=== PATIENT | female | born 1985 | race Caucasian/White ===

== ENCOUNTER 2018-01-10 12:25 | Emergency (ER) | payer BC ==
--- NOTE | 2018-01-10 14:34 | RAD ---
INDICATION: Evaluate for glass foreign body COMPARISON: None TECHNIQUE: AP, lateral, and oblique views were obtained. FINDINGS: There is no acute bony change. There is moderate first MTP joint osteoarthritis. There is no radiopaque foreign body. IMPRESSION: FIRST MTP JOINT OSTEOARTHRITIS. NO RADIOPAQUE FOREIGN BODY.
--- NOTE | 2018-01-10 14:50 | ED ---
Lower Extremity - HPI Summary HPI Summary: 32-year-old female presents with presents with potential foreign body. She states that it was ago she states on a piece of glass. She states that 3 days ago she removed a piece of glass and developed some pus behind it. She denies any fevers. She denies any redness. She wonders is still foreign body. She states is painful when she ambulates. no history of MRSA. She is not diabetic. - History of Current Complaint Chief Complaint: UCWounds Stated Complaint: FOOT COMPLAINT Time Seen by Provider: 01/10/18 14:08 Hx Last Menstrual Period: breast feeding Pain Intensity: 6 - Allergies/Home Medications Allergies/Adverse Reactions: Allergies Allergy/AdvReac Type Severity Reaction Status Date / Time No Known Allergies Allergy Verified 01/10/18 14:01 PMH/Surg Hx/FS Hx/Imm Hx Endocrine/Hematology History: Denies: Hx Diabetes, Hx Thyroid Disease Cardiovascular History: Reports: Hx Hypertension - preclamp Respiratory History: Denies: Hx Asthma, Hx Chronic Obstructive Pulmonary Disease (COPD) GI History: Denies: Hx Ulcer - Surgical History Surgery Procedure, Year, and Place: denies Infectious Disease History: Yes Infectious Disease History: Denies: Hx Hepatitis, Hx Human Immunodeficiency Virus (HIV), Traveled Outside the [place] in Last 30 Days - Family History Known Family History: Negative: Diabetes - Social History Alcohol Use: Occasionally Substance Use Type: Reports: None Smoking Status (MU): Never Smoked Tobacco Review of Systems Negative: Fever Negative: Chest Pain Negative: Shortness Of Breath Positive: Myalgia - right foot pain All Other Systems Reviewed And Are Negative: Yes Physical Exam Triage Information Reviewed: Yes Vital Signs On Initial Exam: Initial Vitals Temp Pulse Resp BP Pulse Ox 99.5 F 63 18 122/74 100 01/10/18 13:57 01/10/18 13:57 01/10/18 13:57 01/10/18 13:57 01/10/18 13:57 Vital Signs Reviewed: Yes Appearance: Positive: Well-Appearing Skin: Positive: Warm, Dry Head/Face: Positive: Normal Head/Face Inspection Eyes: Positive: Normal, Conjunctiva Clear ENT: Positive: Pharynx normal Respiratory/Lung Sounds: Positive: Clear to Auscultation, Breath Sounds Present Cardiovascular: Positive: Normal, RRR Musculoskeletal: Positive: Strength/ROM Intact - right pain, Other - area of tenderness on left heel, no erythema, scab on left heel, good pulses, capillary refill<2secs. Negative: Edema Left Neurological: Positive: Normal Psychiatric: Positive: Normal Diagnostics - Vital Signs Vital Signs Temp Pulse Resp BP Pulse Ox 01/10/18 13:57 99.5 F 63 18 122/74 100 - Laboratory Lab Statement: Any lab studies that have been ordered have been reviewed, and results considered in the medical decision making process. Lower Extremity Course/Dx - Course Course Of Treatment: 32-year-old female presents with presents with potential foreign body. She states that it was ago she states on a piece of glass. She states that 3 days ago she removed a piece of glass and developed some pus behind it. She denies any fevers. She denies any redness. She wonders is still foreign body. She states is painful when she ambulates. no history of MRSA. She is not diabetic. on exam no erythema present. has scab on area. no foreign body felt. xray shows no foreign body. will place on keflex and have do warm soaks. patient understand and agrees with plan. - Diagnoses Differential Diagnosis/HQI/PQRI: Positive: Cellulitis, Foreign Body, Infection Provider Diagnoses: Left foot pain Discharge - Sign-Out/Discharge Documenting (check all that apply): Discharge/Admit/Transfer - Discharge Plan Condition: Good Disposition: HOME Prescriptions: Cephalexin CAP* [Keflex CAP*] 500 mg PO BID #14 cap Fluconazole 150 MG (NF) [Diflucan 150 mg (NF)] 150 mg PO ONCE #1 tab Patient Education Materials: Soft Tissue Foreign Body (ED) Referrals: Dafne Vicente MD [Primary Care Provider] - Additional Instructions: Take keflex twice a day for 7 days do warm soaks area twice a day Follow up with primary if no improvement in 5 days Return to ED if develop any new or worsening symptoms - Billing Disposition and Condition Condition: GOOD Disposition: Home
== END 2018-01-10 15:21 | disposition home or self-care (01) ==
LOC: UCEAST 12:25
DX: M79.672 Pain in left foot (principal); I10 Essential (primary) hypertension
CPT/HCPCS: 99202; G0463

== ENCOUNTER 2020-03-09 13:58 | Inpatient (IN) ==
[2020-03-09] MEDS ORDERED: Lactated Ringers 1000 ml BAG 1,000 ML IV ONE ×2 (14:30→18:17)
[2020-03-09] MEDS ORDERED: Lactated Ringers 1000 ml BAG 1,000 ML IV SCH ×3 (15:00→20:00)
[2020-03-09] MEDS ORDERED: Oxytocin in LR 20 UNITS/1,000 ML BAG IVPB SCH ×2 (15:00→20:00)
[2020-03-09 15:11] LABS: ABS Lymphocytes 1.8 10^3/ul (1.0-4.8); ABS Monocytes 0.5 10^3/ul (0-0.8); ABS Neutrophils 6.3 10^3/ul (1.5-7.7); Eosinophil % 0.3 %; Hematocrit 37 % (35-47); Lymphocyte % 20.9 %; Mean Corpuscular HGB Conc 35 g/dL (31-36); Mean Corpuscular Hemoglobin 32 pg (27-31); Mean Corpuscular Volume 90 fL (80-97); Mean Platelet Volume 9.1 fL (7.4-10.4); Platelet Count 257 10^3/uL (150-450); Red Blood Count 4.11 10^6 /uL (3.70-4.87); Red Cell Distribution Width 14 % (10-15); White Blood Count 8.7 10^3/uL (3.5-10.8)
[2020-03-09 15:49] LABS: Albumin 3.6 g/dL (3.2-5.2); Albumin/Globulin Ratio 1.4 (1-3); BUN/Creatinine Ratio 9.4 (8-20); Calcium 9.1 mg/dL (8.6-10.3); EGFR African American 128.5 (>60); EGFR Non-African American 106.2 (>60); Globulin 2.6 g/dL (2-4); Potassium 3.7 mmol/L (3.5-5.0); Total Bilirubin 0.3 mg/dL (0.2-1.0); Total Protein 6.2 g/dL (6.4-8.9); Uric Acid 3.9 mg/dL (2.3-6.6)
[2020-03-09 16:00] LABS: Urine Benzodiazepine Screen None Detected (None Detect); Urine Cannabinoids Screen None Detected (None Detect); Urine Opiates Screen None Detected (None Detect)
[2020-03-09] MEDS ORDERED: OBEPIDURAL 250 ML EPIDURAL ONE (17:37)
[2020-03-09] MEDS ORDERED: EPHEDrine (Pressors) 50 MG/ML VIAL IV PUSH PRN ×2 (18:17)
[2020-03-09] MEDS ORDERED: Sodium Citrate/Citric Acid LIQ 15 ML UDC PO PRN (18:17)
[2020-03-09] MEDS ORDERED: Phenylephrine 40 mcg/mL 10mL (400mcg) SYRINGE IV PUSH PRN ×2 (18:17)
[2020-03-09] MEDS ORDERED: OBEPIDURAL 250 ML EPIDURAL SCH (19:00)
[2020-03-09] MEDS ORDERED: Witch Hazel PAD JAR TOPICAL PRN (19:52)
[2020-03-09] MEDS ORDERED: Glycerin ADULT 2.4 gm SUPP PR PRN (19:52)
[2020-03-09] MEDS ORDERED: Dibucaine 1% OINT 28.35 GM TUBE PR PRN (19:52)
[2020-03-09] MEDS ORDERED: Lidocaine 1% VIAL 10 MG/ML VIAL ONE (22:01)
[2020-03-10 06:41] LABS: ABS Eosinophils 0.1 10^3/ul (0-0.6); ABS Lymphocytes 2.6 10^3/ul (1.0-4.8); ABS Monocytes 0.8 10^3/ul (0-0.8); ABS Neutrophils 8.9 10^3/ul (1.5-7.7); Eosinophil % 0.6 %; Hematocrit 36 % (35-47); Hemoglobin 12.7 g/dL (12.0-16.0); Mean Corpuscular HGB Conc 35 g/dL (31-36); Mean Corpuscular Hemoglobin 32 pg (27-31); Mean Corpuscular Volume 91 fL (80-97); Mean Platelet Volume 9.2 fL (7.4-10.4); Platelet Count 241 10^3/uL (150-450); Red Blood Count 3.98 10^6 /uL (3.70-4.87); Red Cell Distribution Width 14 % (10-15); White Blood Count 12.4 10^3/uL (3.5-10.8)
[2020-03-11 08:25] VITALS: BP 127/81
== END 2020-03-11 20:20 | disposition home or self-care (01) | DRG 560 ==
LOC: MCHOBOUT 13:58 → MCHOB 14:32
PROVIDERS: ADMIT Obstetrics & Gynecology; ATTEND Obstetrics & Gynecology